=== PATIENT | male | born 1965 | race Caucasian/White ===

== ENCOUNTER 2019-09-29 20:00 | Outpatient (CLI) | payer OTHER, SELFPAY | END 2019-09-29 20:01 | disposition home or self-care (01) | LOC: SLEEP 09-30 08:29 | PROVIDERS: Family Provider Internal Medicine; PCP Nurse Practitioner; Visit Provider Nurse Practitioner | DX: G47.30 Sleep apnea, unspecified (principal) | CPT/HCPCS: 95811 ==

== ENCOUNTER → 2020-06-05 09:33 | Outpatient (BNVA) | payer OTHER, SELFPAY | PROVIDERS: Family Provider Internal Medicine; PCP Nurse Practitioner; Referring Provider Family Medicine; Visit Provider Specialist | DX: M17.11 Unilateral primary osteoarthritis, right knee (principal); R29.898 Other symptoms and signs involving the musculoskeletal system | CPT/HCPCS: 73560; 73565 ==

== ENCOUNTER 2021-09-18 14:05 | Outpatient (CLI) | payer OTHER, SELFPAY ==
--- NOTE | 2021-09-18 14:15 | US_ITS ---
WS: [id number] THYROID ULTRASOUND HISTORY: ENLARGED THYROID COMPARISON: None available. Right lobe: 1.4 cm x 1.8 cm x 5.3 cm (w x ap x l). Volume: 6.9 cm3. Normal size and echotexture. No significant are dominant nodules are present. Colloid cystic nodule u pper pole RIGHT thyroid with a maximum diameter of 5 mm. Left lobe: 1.5 cm x 1.9 cm x 3.8 cm (w x ap x l). Volume: 5.6 cm3. Normal size and echotexture. No significant or dominant nodules are present. Isthmus: 0.3 cm. US/US thyroid [id number] IMPRESSION: 1. Normal size thyroid. 2. No suspicious solid nodules.
== END 2021-09-18 14:06 | disposition home or self-care (01) ==
LOC: RAD 14:08
PROVIDERS: PCP Nurse Practitioner; Visit Provider Nurse Practitioner
DX: E04.9 Nontoxic goiter, unspecified (principal)
CPT/HCPCS: 76536

== ENCOUNTER 2023-05-16 07:26 | Outpatient (CLI) | payer OTHER, SELFPAY ==
--- NOTE | 2023-05-16 07:34 | CT_ITS ---
WS: [id number] CT HEAD NONCONTRAST HISTORY: MIGRAINES TECHNIQUE: Contiguous axial imaging performed through the brain in 2.5 mm imaging. Bone and soft tiss ue windows. Sagittal and coronal reformats reviewed. All CT scans at [facility] use at least one of these dose optimization techniques: automated exposure control; mA and/or kV adjustment per pa tient size (includes targeted exams where dose is matched to clinical indication); or iterative recon struction. DLP: 1044.48 mGy.cm COMPARISON: None available. No acute intracranial hemorrhage, midline shift or mass effect. Mild bilateral cerebral atrophy. There is also mild to moderate atrophy of the cerebellum which is sl ightly greater than expected for age. There are no prior infarcts. Mild small vessel ischemic disease . Ventricles: Normal size with no hydrocephalus. No inferior displacement the cerebellar tonsils. Paranasal sinuses: As visualized are clear. Mastoid air cells: Well pneumatized. Calvarium and scalp: Skull is intact with no soft tissue edema or swelling. IMPRESSION: 1. Mild bilateral cerebral atrophy with mild to moderate atrophy of the cerebellum. 2. No prior infarcts or hemorrhage.
== END 2023-05-16 07:27 | disposition home or self-care (01) ==
LOC: RAD 07:26
PROVIDERS: PCP Nurse Practitioner; Visit Provider Nurse Practitioner
DX: G43.909 Migraine, unspecified, not intractable, without status migrainosus (principal); G31.9 Degenerative disease of nervous system, unspecified
CPT/HCPCS: 70450

== ENCOUNTER → 2023-08-13 08:55 | Outpatient (BNVA) | payer OTHER, SELFPAY | PROVIDERS: PCP Nurse Practitioner; Visit Provider Psychiatry & Neurology Neurology | DX: R25.9 Unspecified abnormal involuntary movements (principal); R29.90 Unspecified symptoms and signs involving the nervous system; G47.00 Insomnia, unspecified; G47.33 Obstructive sleep apnea (adult) (pediatric) | CPT/HCPCS: 99203 ==

== ENCOUNTER 2023-08-27 07:43 | Outpatient (CLI) | payer OTHER, SELFPAY ==
--- NOTE | 2023-08-27 08:00 | MR_ITS ---
WS: [id number] MRI HEAD WITH CONTRAST TECHNIQUE: Sagittal T1, T2 axial, T2 axial FLAIR, axial susceptibility weighted imaging, axial diffus ion weighted images, and coronal T2 images were obtained. Pre and post-T1 axial and post T1 coronal i mages. ADC and FSPGR images. CLINICAL INFORMATION: R29.898 - Other symptoms and signs involving the musculos... COMPARISON: CT 05/16/2023 FINDINGS: No evidence of restricted diffusion to suggest acute ischemia. Ventricular system and basal cisterns are patent. Mild small vessel changes. Moderate parenchymal volume loss. Normal posterior fossa. Norm al vascular flow voids at the skull base. No extra-axial fluid collections. No evidence of mass or ma ss effect. Paranasal sinuses and mastoid air cells are well aerated. Normal optic chiasm and pituitar y infundibulum. Mild symmetric atrophy temporal lobes and hippocampal formations. No hemosiderin on t he susceptibly weighted images. No abnormal gadolinium enhancement. Normal dural venous sinuses. MR/MR head wo/w con [id number] IMPRESSION: 1. No evidence of restricted diffusion to suggest acute ischemia. 2. Mild small vessel changes. Moderate parenchymal volume loss. 3. and Mild symmetric atrophy temporal lobes hippocampal formations. 4. No hemosiderin on the susceptibly weighted images.
[2023-08-27] MEDS: gadobenate dimeglumine 20 mL vial IV (08:21)
== END 2023-08-27 07:44 | disposition home or self-care (01) ==
LOC: RAD 07:43
PROVIDERS: PCP Nurse Practitioner; Visit Provider Psychiatry & Neurology Neurology
DX: R29.898 Other symptoms and signs involving the musculoskeletal system (principal); G31.89 Other specified degenerative diseases of nervous system; M17.11 Unilateral primary osteoarthritis, right knee
CPT/HCPCS: 70553; A9577

== ENCOUNTER → 2023-10-22 11:00 | Outpatient (BNVA) | payer OTHER, SELFPAY | PROVIDERS: PCP Nurse Practitioner; Visit Provider Surgery | DX: K21.9 Gastro-esophageal reflux disease without esophagitis (principal) | CPT/HCPCS: 99203 ==

== ENCOUNTER → 2023-11-04 09:04 | Outpatient (BNVA) | payer OTHER, SELFPAY | PROVIDERS: PCP Nurse Practitioner; Visit Provider Psychiatry & Neurology Neurology | DX: R25.9 Unspecified abnormal involuntary movements (principal); G47.00 Insomnia, unspecified; R56.9 Unspecified convulsions | CPT/HCPCS: 95816; 95819 ==

== ENCOUNTER 2023-11-11 10:17 | Day surgery (SDC) | payer OTHER, SELFPAY ==
--- NOTE | 2023-11-11 10:27 | W.PM.OPSUD ---
Surgery/Procedure H&P Update DATE OF PROCEDURE: November 11, 2023 DATE H&P PERFORMED: 10/22/23 H&P UPDATE INFORMATION: I have reviewed H&P completed within last 30 days, I have examined patient prior to procedure, No changes to prior documentation and H&P is in [facility] on date indicated PLANNED PROCEDURE: Operation Date: 11/11/23 11:25 Proposed Procedures p EGD [id number], K21.9(Not Applicable) - Wilbert Gamez MD
[2023-11-11] MEDS: sodium chloride 0.9% 1,000 ML 30 ML IV (10:31)
[2023-11-11 10:39] VITALS: BMI 28.8
[2023-11-11 10:41] VITALS: BP 157/91; PULSE 94; RESP 18; TEMP 36.4; O2SAT 95
[2023-11-11 10:42] LABS: Glucose Point of Care 160 mg/dL (70-110)
--- NOTE | 2023-11-11 10:47 | ANES.PREANE2 ---
Pre-Anesthetic Assessment Height/Weight: Height 1.85 m Weight 98.883 kg Temp Pulse Resp BP Pulse Ox O2 Del Method 97.6 F 94 18 157/91 95 Room Air 11/11/23 10:41 11/11/23 10:41 11/11/23 10:41 11/11/23 10:41 11/11/23 10:41 11/11/23 10:41 Preop Diagnosis: GERD Operation Date: 11/11/23 11:25 Proposed Procedures p EGD [id number], K21.9(Not Applicable) - Wilbert Gamez MD Was Beta Miles taken within 24 hours: N/A Was Clonidine taken within 24 hours: N/A Last intake: Intake Last Liquid Date 11/10/23 Last Liquid Time 23:30 Last Solid Date 11/09/23 Social Alcohol and Tobacco Cigars Exam alert, oriented x 3, clear to auscultation bilaterally and regular rate & rhythm Airway Submandibular: within normal limits Cervical ROM: within normal limits Mallampati: Class II Dentition: full History/ROS No significant history except as noted and No significant complaints Pulmonary Sleep Apnea CPAP CV/HEM None reported None reported Hepatic None reported GI Gastroesophageal Reflux Disease Metabolic Diabetes Mellitus Neuropsych Neuropathy Tremors Anesthetic Plan ASA status: 3 Anesthesia: Anesthesia Evaluation and MAC Risk of > 500 ml blood loss (7ml/kg in children): No Medications/Allergies Home Medications Medication Instructions Recorded Confirmed Last Taken Type cyclobenzaprine 10 mg tablet 10 mg PO TID 06/05/20 11/06/23 11/06/23 History fluticasone propionate 50 1 spray intranasal DAILY 06/05/20 11/06/23 11/09/23 History mcg/actuation nasal spray,suspension loperamide 2 mg capsule (Imodium 2 mg PO Q6H PRN Diarrhea 06/05/20 11/11/23 Unknown History A-D) loratadine 5 mg disintegrating 5 mg PO BID 06/05/20 11/06/23 11/09/23 History tablet (Claritin RediTabs) magnesium 200 mg tablet 200 mg PO DAILY 06/05/20 11/06/23 11/09/23 History multivitamin 1 tab PO DAILY 06/05/20 11/06/23 11/09/23 History sumatriptan succinate 50 mg tablet 50 mg PO Q2H PRN Headache 06/05/20 11/11/23 Unknown History Lactobacillus acidophilus 2,000 mmu cells PO BID 08/13/23 11/06/23 11/06/23 History empagliflozin 25 mg tablet 25 mg PO DAILY 08/13/23 11/06/23 11/09/23 History (Jardiance) lactulose 10 gram/15 mL oral 10 g PO DAILY 08/13/23 11/06/23 11/06/23 History solution metformin 500 mg tablet 500 mg PO BID 08/13/23 11/06/23 11/09/23 History omeprazole 20 mg capsule,delayed 20 mg PO BID 08/13/23 11/06/23 11/09/23 History release pravastatin 80 mg tablet 80 mg PO DAILY 08/13/23 11/06/23 11/09/23 History sildenafil 100 mg tablet 100 mg PO DAILY PRN Sexual Activity 08/13/23 11/11/23 Unknown History pioglitazone 30 mg tablet (Actos) 30 mg PO DAILY 11/06/23 11/06/23 11/09/23 History Allergies Allergy/AdvReac Type Severity Reaction Status Date / Time No Known Allergies Allergy Verified 11/11/23 10:33 Current Medications Generic Name Dose Route Start Last Admin Trade Name Freq PRN Reason Stop Dose Admin Sodium Chloride 1,000 mls @ 30 mls/hr 11/11/23 10:30 11/11/23 10:31 Sodium Chloride 0.9% IV 11/12/23 10:29 30 mls/hr .Q24H SABINO Administration PFSH Anesthesia Social History Smoking and tobacco/nicotine status: current some day tobacco/nicotine user (cigars on occassion) Alcohol intake: current Alcohol intake frequency: holidays/special occasions only Substance/Drug Use: never Data Anesthesia Cardiac Studies: No Data to Display
[2023-11-11 11:39] VITALS: BP 120/81; PULSE 93; RESP 16; TEMP 36.6; O2SAT 94
[2023-11-11 11:49] VITALS: BP 129/83; PULSE 93; RESP 16; TEMP 36.3; O2SAT 96
--- NOTE | 2023-11-11 15:12 | ANE.PACU2 ---
Inpatient post-anesthesia follow up: Airway intact: Yes Vital signs: Temperature 97.4 F Pulse Rate 93 Respiratory Rate 16 Blood Pressure 129/83 Pulse Oximetry 96 Oxygen Delivery Me thod Room Air Oxygen Flow Rate Fraction of Inspir ed Oxygen Hydration adequate: Yes Nausea and vomiting: No Pain level: 2 Mental status: Baseline
== END 2023-11-11 12:14 | disposition home or self-care (01) ==
PROVIDERS: PCP Nurse Practitioner; Visit Provider Surgery
PROC: 0DJ08ZZ Inspection of Upper Intestinal Tract, Via Natural or Artificial Opening Endoscopic (ICD-10-PCS; CPT 43235; principal; 2023-11-11 11:25)
DX: K21.9 Gastro-esophageal reflux disease without esophagitis (principal); K29.50 Unspecified chronic gastritis without bleeding; G47.30 Sleep apnea, unspecified; E11.40 Type 2 diabetes mellitus with diabetic neuropathy, unspecified; Z79.84 Long term (current) use of oral hypoglycemic drugs; F17.200 Nicotine dependence, unspecified, uncomplicated
CPT/HCPCS: 36416; 43239; 82962; 88305; 88342; J2704; J7030

== ENCOUNTER → 2023-12-05 08:28 | Outpatient (BNVA) | payer OTHER, SELFPAY | PROVIDERS: PCP Nurse Practitioner; Visit Provider Surgery | DX: Z09 Encounter for follow-up examination after completed treatment for conditions other than malignant neoplasm (principal) | CPT/HCPCS: 99213 ==

== ENCOUNTER → 2023-12-30 15:23 | Outpatient (BNVA) | payer OTHER, SELFPAY | PROVIDERS: PCP Nurse Practitioner; Visit Provider Psychiatry & Neurology Neurology | DX: R25.9 Unspecified abnormal involuntary movements (principal); R56.9 Unspecified convulsions; R29.90 Unspecified symptoms and signs involving the nervous system; R20.2 Paresthesia of skin; R29.898 Other symptoms and signs involving the musculoskeletal system; M62.542 Muscle wasting and atrophy, not elsewhere classified, left hand; G56.03 Carpal tunnel syndrome, bilateral upper limbs | CPT/HCPCS: 99212; 99213 ==

== ENCOUNTER → 2024-03-23 12:42 | Outpatient (BNVA) | payer OTHER, SELFPAY | PROVIDERS: PCP Nurse Practitioner; Visit Provider Psychiatry & Neurology Neurology | DX: M62.542 Muscle wasting and atrophy, not elsewhere classified, left hand (principal); R29.898 Other symptoms and signs involving the musculoskeletal system; R20.2 Paresthesia of skin; M79.601 Pain in right arm; M79.602 Pain in left arm | CPT/HCPCS: 95912 ==

== ENCOUNTER → 2024-05-10 14:26 | Outpatient (BNVA) | payer OTHER, SELFPAY | PROVIDERS: PCP Nurse Practitioner; Visit Provider Psychiatry & Neurology Neurology | DX: R25.9 Unspecified abnormal involuntary movements (principal); G56.00 Carpal tunnel syndrome, unspecified upper limb; M54.2 Cervicalgia; R29.898 Other symptoms and signs involving the musculoskeletal system; R20.2 Paresthesia of skin; M79.601 Pain in right arm; M79.602 Pain in left arm; R56.9 Unspecified convulsions; R29.90 Unspecified symptoms and signs involving the nervous system; M62.542 Muscle wasting and atrophy, not elsewhere classified, left hand | CPT/HCPCS: 99212 ==

== ENCOUNTER 2024-05-19 14:26 | Outpatient (CLI) | payer OTHER, SELFPAY ==
--- NOTE | 2024-05-19 15:15 | MR_ITS ---
WS: [id number] MRI CERVICAL SPINE with and without HISTORY: M54.2 - Cervicalgia COMPARISON: 09/25/2018 Technique: Multiplanar, multisequence noncontrast imaging of the cervical spine. Mild straightening of the normal cervical lordosis. Posterior cervical alignment is normal. Disc spaces are mildly narrowed and desiccated. Hypertrophic endplate osteophytes at each level. Slightly greater disc space narrowing at C5-6. Signal within the cervical cord is normal. Visualized posterior fossa is unremarkable. Craniocervical junction, C1 and C2 relationship, odontoid process and soft tissues are normal. C2-C3: Mild osteophytic ridging and facet arthritis. Mild bilateral foraminal stenosis, LEFT greater than RIGHT. C3-C4: Disc osteophyte disease encroaching upon the ventral thecal sac and foramina. There is a central disc protrusion extending slightly greater to the LEFT. Mild central with moderate bilateral foraminal stenosis. C4-C5: Mild osteophytic ridging and disc bulging. Central disc protrusion with annular fissure noted on the prior study has decreased in size. There is less central stenosis and deformity of the cord. Mild osteophytic ridging greater on the RIGHT. Mild central with moderate foraminal stenosis. C5-C6: Marked osteophytic ridging and disc bulging. Large central disc protrusion with facet joint arthritis. Central disc protrusion has progressed. Progression of central and foraminal stenosis which is now severe. Cervical cord is being deformed by the disc disease. C6-C7: Diffuse osteophytic ridging and disc bulging. Slight decrease in size of the RIGHT paracentral disc protrusion. Mild central with moderate bilateral foraminal stenosis. C7-T1: Diffuse osteophytic ridging and disc bulging with a central disc protrusion contacting the ventral cervical cord. Similar findings as on the prior study. Mild central and moderate foraminal stenosis with facet arthritis. Paraspinal soft tissues are normal. No discitis or osteomyelitis. No enhancing cord lesions. MR/MR cervical spine wo/w [id number] IMPRESSION: 1. No acute discitis or osteomyelitis. 2. Multilevel central and foraminal stenoses due to osteophyte and disc and fa cet arthritis. 3. C5-6: Large central disc protrusion with disc bulging and osteophytosis res ulting in severe central and foraminal stenosis with disc osteophyte contacting the ventral cord. 4. C6-7: Mild central with moderate bilateral foraminal stenosis. Previously d escribed RIGHT paracentral disc protrusion has decreased in size. 5. C7-T1: Mild central and moderate foraminal stenosis. Central disc protrusio n contacts the ventral cervical cord. 6. C3-4 and C4-5: Mild central with moderate foraminal stenosis. Central disc protrusion previously described at C4-5 has decreased in size. 7. C2-3: Mild foraminal stenosis.
--- NOTE | 2024-05-19 16:00 | MR_ITS ---
WS: [id number] MRI LUMBAR SPINE WITH AND WITHOUT HISTORY: R25.9 - Unspecified abnormal involuntary movements COMPARISON: None available. TECHNIQUE: Sagittal and axial multisequence imaging is submitted. MultiHance 20 mL IV postcontrast. Normal lumbar alignment with no compression fractures or marrow edema. Mild disc space narrowing at L5-S1. No fractures or marrow edema. Conus terminates normally at L1-2 disc level. L1-L2: Mild facet arthritis. No stenosis. L2-L3: Mild facet arthritis. No stenosis. L3-L4: Mild annular disc bulging, osteophytic ridging and facet arthritis. Encroachment upon the ventral thecal sac. There is disc encroachment upon the subarticular recesses and the traversing L4 nerve roots. Mild central, bilateral subarticular recess and foraminal stenosis. L4-L5: Annular disc bulging with ligamentum flavum and facet arthritis. Mild central and bilateral subarticular recess and foraminal stenosis. L5-S1: Diffuse annular disc bulging with osteophytic ridging. Disc osteophyte disease extending into the foramina bilaterally. Broad-based LEFT foraminal disc protrusion. Moderate central with bilateral subarticular recess and foraminal stenosis. There is significant contact on the L5 and S1 nerve roots bilaterally. Urinary bladder is markedly distended on this examination. Correlate for possible bladder outlet obstruction. No discitis or osteomyelitis. MR/MR lumbar spine wo/w con [id number] IMPRESSION: 1. L5-S1: Moderate central, bilateral subarticular recess and foraminal stenos is due to disc and osteophyte disease. There is significant contact on the L5 a nd S1 nerve roots. 2. L3-4 and L4-5: Mild central with bilateral subarticular recess and foramina l stenosis. 3. No discitis or osteomyelitis.
[2024-05-19] MEDS: gadobenate dimeglumine 20 mL vial IV (16:25)
== END 2024-05-19 14:27 | disposition home or self-care (01) ==
LOC: RAD 14:27
PROVIDERS: PCP Nurse Practitioner; Visit Provider Psychiatry & Neurology Neurology
DX: M48.02 Spinal stenosis, cervical region (principal); R29.898 Other symptoms and signs involving the musculoskeletal system; R20.2 Paresthesia of skin; M79.601 Pain in right arm; M79.602 Pain in left arm; R25.9 Unspecified abnormal involuntary movements; M48.07 Spinal stenosis, lumbosacral region; M48.061 Spinal stenosis, lumbar region without neurogenic claudication; R93.7 Abnormal findings on diagnostic imaging of other parts of musculoskeletal system; M47.896 Other spondylosis, lumbar region; M51.369 Other intervertebral disc degeneration, lumbar region without mention of lumbar back pain or lower extremity pain; M51.379 Other intervertebral disc degeneration, lumbosacral region without mention of lumbar back pain or lower extremity pain; M51.27 Other intervertebral disc displacement, lumbosacral region; R93.49 Abnormal radiologic findings on diagnostic imaging of other urinary organs; M47.892 Other spondylosis, cervical region; M50.222 Other cervical disc displacement at C5-C6 level; M50.322 Other cervical disc degeneration at C5-C6 level; M50.223 Other cervical disc displacement at C6-C7 level; M48.03 Spinal stenosis, cervicothoracic region; M50.23 Other cervical disc displacement, cervicothoracic region; M50.221 Other cervical disc displacement at C4-C5 level; M25.78 Osteophyte, vertebrae; M50.21 Other cervical disc displacement, high cervical region; M50.321 Other cervical disc degeneration at C4-C5 level; M50.323 Other cervical disc degeneration at C6-C7 level; M50.33 Other cervical disc degeneration, cervicothoracic region; M47.893 Other spondylosis, cervicothoracic region
CPT/HCPCS: 72156; 72158

== ENCOUNTER → 2024-06-15 14:02 | Outpatient (BNVA) | payer OTHER, SELFPAY | PROVIDERS: PCP Nurse Practitioner; Visit Provider Orthopaedic Surgery | DX: M54.50 Low back pain, unspecified (principal); M54.2 Cervicalgia | CPT/HCPCS: 72050; 72110; 99204 ==

== ENCOUNTER 2024-06-22 10:05 | Outpatient (CLI) | payer OTHER, SELFPAY ==
[2024-06-22 10:49] LABS: Basophils % 0.7 %; Eosinophils # 0.1 10^3/uL (0.0-0.8); Eosinophils % 1.3 %; Lymphocytes % 35.4 %; Mean Corpuscular HGB Conc 33.3 g/dL (30-55); Mean Corpuscular Hemoglobin 30.3 pg (27-33); Mean Corpuscular Volume 91.1 fl (82-101); Mean Platelet Volume 10.7 fL (7.4-10.4); Monocytes # 0.4 10^3/uL (0.2-0.9); Monocytes % 7.4 %; Neutrophils # 3.04 10^3/uL (1.8-7.7); Nucleated Red Blood Cells % 0 %; Platelet Count 198 10^3/cmm (157-399); Red Blood Count 4.72 10^6/uL (3.85-5.65); Red Cell Distribution Width 12.6 % (12.1-15.1); White Blood Count 5.53 10^3/uL (3.29-11.43)
[2024-06-22 10:52] LABS: Bilirubin Urine Negative (Negative); Blood Urine Negative (Negative); Glucose Urine UA 2+ (Normal); Ketones Urine Negative (Negative); Leukocyte Esterase Urine Negative (Negative); Nitrate Urine Negative (Negative); Protein Urine Negative (Negative); Specific Gravity, Urine 1.005 (1.005-1.030); Urine Appearance Clear (CLEAR); Urine Color Yellow (Yellow); Urobilinogen Urine 0.2 mg/dL (Negative)
[2024-06-22 10:54] LABS: Add Urine Microscopic? YES; Bacteria Urine None Seen /hpf; Hyaline Casts Urine 0-4 /lpf; RBC Urine 0-2 /hpf (0-2); Squamous Epithelial Cell Urine 0-5 /hpf (0-5); WBC Urine 0-5 /hpf (0-5)
[2024-06-22 11:19] LABS: Alanine Aminotransferase 27 U/L (0-41); Albumin Level 4.7 g/dL (3.5-5.2); Alkaline Phosphatase 71 U/L (40-130); Anion Gap 15.3 (5-19); Aspartate Amino Transferase 23 U/L (0-40); Blood Urea Nitrogen 10 mg/dL (6-20); Calcium 9.5 mg/dL (8.5-10.5); Carbon Dioxide 26 mmol/L (22-29); Chloride 100 mmol/L (98-107); Globulin 2.6 g/dL (1.3-4.6); Glomerular Filtration Rate 76.7 mL/min (90-130); Glucose 131 mg/dL (65-115); Osmolality Calculated 285 mOsm/kg (285-295); Potassium 4.3 mmol/L (3.5-5.1); Sodium 137 mmol/L (136-145); Total Bilirubin 0.4 mg/dL (0.15-1.2); Total Protein 7.3 g/dL (6.6-8.7)
[2024-06-22 11:21] LABS: Estmated Average Glucose 154
== END 2024-06-22 10:06 | disposition home or self-care (01) ==
LOC: LAB 10:06
PROVIDERS: PCP Nurse Practitioner; Visit Provider Orthopaedic Surgery
DX: Z01.818 Encounter for other preprocedural examination (principal)
CPT/HCPCS: 36415; 80053; 81001; 83036; 85025

== ENCOUNTER 2024-07-07 05:36 | Day surgery (SDC) | payer OTHER, SELFPAY ==
[2024-07-07] VITALS (10 sets, daily range): BP systolic 115–159; BP diastolic 72–96; PULSE 75–80; RESP 10–18; TEMP 36.1–36.4; O2SAT 94–99
[2024-07-07] MEDS: sodium chloride 0.9% 1,000 ML 30 ML IV (06:12)
[2024-07-07 06:18] LABS: Glucose Point of Care 150 mg/dL (70-110)
--- NOTE | 2024-07-07 06:22 | W.PM.OPSUD ---
Surgery/Procedure H&P Update DATE OF PROCEDURE: July 07, 2024 DATE H&P PERFORMED: 06/15/24 H&P UPDATE INFORMATION: I have reviewed H&P completed within last 30 days, I have examined patient prior to procedure and No changes to prior documentation PREOP DIAGNOSIS: Cervical stenosis with radiculopathy and myelopathy PLANNED PROCEDURE: Operation Date: 07/07/24 07:00 Proposed Procedures p Anterior Cervical Discectomy & Fusion ACDF w/ Anterior Interbody Fusion w/ Cage w/ Instrumentation w/ Allograft w/ Navigation(Not Applicable) - Jesse Jacobs DO
--- NOTE | 2024-07-07 06:26 | ANES.PREANE2 ---
Pre-Anesthetic Assessment Height/Weight: Height 1.85 m Weight 104.326 kg Temp Pulse Resp BP Pulse Ox O2 Del Method 97.6 F 76 18 140/74 94 Room Air 07/07/24 06:03 07/07/24 06:03 07/07/24 06:03 07/07/24 06:03 07/07/24 06:03 07/07/24 06:03 Preop Diagnosis: Cervical stenosis with radiculopathy and myelopathy Operation Date: 07/07/24 07:00 Proposed Procedures p Anterior Cervical Discectomy & Fusion ACDF w/ Anterior Interbody Fusion w/ Cage w/ Instrumentation w/ Allograft w/ Navigation(Not Applicable) - Jesse Jacobs, DO Familial anesthetic complications: None Was Beta Miles taken within 24 hours: N/A Was Clonidine taken within 24 hours: N/A Last intake: Intake Last Liquid Date 07/06/24 Last Liquid Time 21:00 Last Solid Date 07/06/24 Last Solid Time 18:30 Social No alcohol and No tobacco Exam alert, oriented x 3, clear to auscultation bilaterally and regular rate & rhythm Airway Mallampati: Class IV Dentition: chipped and other (front implant) Pulmonary Sleep Apnea Metabolic Diabetes Mellitus Anesthetic Plan ASA status: 3 Anesthesia: General Risk of > 500 ml blood loss (7ml/kg in children): No Medications/Allergies Home Medications ?Medication ?Instructions ?Recorded ?Confirmed ?Last Taken ?Type cyclobenzaprine 10 mg tablet 10 mg PO TID 06/05/20 07/07/24 06/23/24 History fluticasone propionate 50 1 spray intranasal DAILY 06/05/20 07/07/24 01/28/24 History mcg/actuation nasal spray,suspension loperamide 2 mg capsule (Imodium 2 mg PO Q6H PRN Diarrhea 06/05/20 07/07/24 05/05/24 History A-D) loratadine 5 mg disintegrating 5 mg PO BID 06/05/20 07/07/24 07/05/24 History tablet (Claritin RediTabs) magnesium 200 mg tablet 200 mg PO DAILY 06/05/20 07/07/24 06/26/24 History multivitamin 1 tab PO DAILY 06/05/20 07/07/24 06/29/24 History sumatriptan succinate 50 mg tablet 50 mg PO Q2H PRN Headache 06/05/20 07/07/24 Unknown History Lactobacillus acidophilus 2,000 mmu cells PO BID 08/13/23 07/07/24 07/02/24 History empagliflozin 25 mg tablet 25 mg PO DAILY 08/13/23 07/07/24 06/16/24 History (Jardiance) lactulose 10 gram/15 mL oral 10 g PO DAILY 08/13/23 07/07/24 06/07/24 History solution metformin 500 mg tablet 500 mg PO BID 08/13/23 07/07/24 07/06/24 07:00 History pravastatin 80 mg tablet 80 mg PO DAILY 08/13/23 07/07/24 07/05/24 History sildenafil 100 mg tablet 100 mg PO DAILY PRN Sexual Activity 08/13/23 07/07/24 Unknown History pioglitazone 30 mg tablet (Actos) 30 mg PO DAILY 11/06/23 07/07/24 07/05/24 History pantoprazole 40 mg tablet,delayed 40 mg PO ONCE 30 days #30 tabs 12/05/23 07/07/24 06/05/24 Rx release trazodone 50 mg tablet 50 mg PO DAILY 05/10/24 07/07/24 07/06/24 History Allergies Allergy/AdvReac Type Severity Reaction Status Date / Time Alpha-Gal Allergy ALGY-Anaphy Verified 07/07/24 06:18 ([id number]-[id number]-8,3-Gala laxis Current Medications Generic Name Dose Route Start Last Admin Trade Name Freq PRN Reason Stop Dose Admin Sodium Chloride 1,000 mls @ 30 mls/hr 07/07/24 06:00 07/07/24 06:12 Sodium Chloride 0.9% IV 07/08/24 05:59 30 mls/hr .Q24H SABINO Administration PFSH Anesthesia Social History Smoking and tobacco/nicotine status: former use of tobacco/nicotine Alcohol intake: current Alcohol intake frequency: holidays/special occasions only Substance/Drug Use: never Data Anesthesia Cardiac Studies: No Data to Display
[2024-07-07] MEDS: ceFAZolin 2,000 mg SDV 2000 MG IVP (06:56)
[2024-07-07] MEDS: lidocaine-epi 1% 20 mL INJ 10 ML INJECTION (07:57)
--- NOTE | 2024-07-07 09:19 | P.OP_ITS ---
Operative Report Date of procedure: July 07, 2024 Pre-op diagnosis: Cervical stenosis with radiculopathy and myelopathy Post-op diagnosis: same Procedure done: 1. Anterior diskectomy C4/5 2. Anterior discectomy C 5/6 3. Insertion of cage C 4/5 4. Insertion of Cage C 5/6 5. Instrumentation with anterior plate from C 4-C6 6. Use of allograft Surgeon: Jesse Jacobs DO Estimated blood loss (mL): 15 Procedure: 1. Anterior diskectomy C4/5 2. Anterior discectomy C 5/6 3. Insertion of cage C 4/5 4. Insertion of Cage C 5/6 5. Instrumentation with anterior plate from C 4-C6 6. Use of allograft The patient was taken to the operating room, where he underwent general endotracheal anesthesia without complications. He was then positioned supine on the operating table, and all areas of impingement were well padded. The arms were carefully padded and tucked at his sides. A roll was placed between the shoulder blades.. An x-ray was done to determine the appropriate level for the skin incision. The entire neck was then sterilely prepped and draped in the usual fashion. Neuromonitoring was attached prior to prepping. A transverse skin incision was made and carried down to the platysma muscle. This was then split in line with its fibers. Blunt dissection was carried down medial to the carotid sheath and lateral to the trachea and esophagus until the anterior cervical spine was visualized. A needle was placed into a disc and an x-ray was done to determine its location. The longus colli muscles were then elevated bilaterally with the electrocautery unit. Self-retaining retractors were placed deep to the longus colli muscle. Attention was brought to the C4/5 level that was confirmed on x-ray. A caspar pin was placed into the C4 vertebrae and the C5 vertebrae. The disk space was then distracted. The microscope was then brought in. A radical anterior discectomies were performed at C4/5. This included complete removal of the anterior annulus, nucleus, and posterior annulus. The posterior longitudinal ligament was removed as were the posterior osteophytes. Foraminotomies were then accomplished bilaterally. This was done using a high speed martin, kerrison rongeurs and curretes Once all of this was accomplished, the curved currette was used to check for any residual compression. The central canal was wide open as were the foramen. A high-speed bur was used to remove the cartilaginous endplates above and below the interspace. Bleeding cancellous bone was exposed. The disc space were measured and appropriate size cage were placed sterilely onto the field. Allograft graft was packed into the cages. The cage was then placed and there was good juxtaposition against the bleeding decorticated surfaces and good distraction of each interspace. Attention was brought to the next interspace. The [place] pins were removed. Bone wax was used to prevent any bleeding from occurring at the pin sites. Attention was brought to the C5/6 level that was confirmed on x-ray. A caspar pin was placed into the C5 vertebrae and the C6 vertebrae. The disk space was then distracted. The microscope was then brought in. A radical anterior discectomies were performed at C5/6. This included complete removal of the anterior annulus, nucleus, and posterior annulus. The posterior longitudinal ligament was removed as were the posterior osteophytes. Foraminotomies were then accomplished bilaterally. This was done using a high speed martin, kerrison rongeurs and curretes Once all of this was accomplished, the curved currette was used to check for any residual compression. The central canal was wide open as were the foramen. A high-speed bur was used to remove the cartilaginous endplates above and below the interspace. Bleeding cancellous bone was exposed. The disc space were measured and appropriate size cage were placed sterilely onto the field. Allograft graft was packed into the cages. The cage was then placed and there was good juxtaposition against the bleeding decorticated surfaces and good distraction of each interspace. The [place] pins were removed. Bone wax was used to prevent any bleeding from occurring at the pin sites. The appropriate size anterior cervical locking plate was chosen and bent into gentle lordosis. Two screws were then placed into each of the vertebral bodies at C4, C5 and C6. There was excellent purchase. A final x-ray was done confirming good position of the hardware and Cages. The locking screws were then applied, also with excellent purchase. Following a final copious irrigation, there was good hemostasis and no dural leaks. The carotid pulse was strong. The wounds were then closed in layers using 2-0 Vicryl suture for the platysma muscle, 2-0 Vicryl suture for the subcutaneous tissue, and 4-0 monocryl suture in a subcuticular skin closure. Glue was placed followed by application of a sterile dressing. The drain was hooked to bulb suction. A soft collar was applied. The patient was then carefully returned to the supine position on his hospital bed where he was reversed and extubated and taken to the recovery room having tolerated the procedure well.
--- NOTE | 2024-07-07 09:21 | XR_ITS ---
WS: [id number] XR cervical spine 3V* [id number] REASON FOR EXAM: or pic, acdf FINDINGS: Anterior plate and screw fixation with interbody fusion devices C4-C6. The surgical appliances are intact and in proper position and alignment. XR/XR cervical spine 3V* [id number] IMPRESSION: Anterior cervical fusion without abnormality.
[2024-07-07] MEDS: HYDROcodone-APAP 7.5-325 mg/15 mL UDC PO (10:27)
--- NOTE | 2024-07-07 10:45 | ANE.PACU2 ---
Inpatient post-anesthesia follow up: Airway intact: Yes Vital signs: Temperature 97.0 F Pulse Rate 77 Respiratory Rate 16 Blood Pressure 159/90 Pulse Oximetry 97 Oxygen Delivery Me thod Room Air Oxygen Flow Rate 10 Fraction of Inspir ed Oxygen Hydration adequate: Yes Nausea and vomiting: No Pain level: 1 Mental status: Baseline
== END 2024-07-07 10:45 | disposition home or self-care (01) ==
PROVIDERS: PCP Nurse Practitioner; Visit Provider Orthopaedic Surgery
PROC: 0RB30ZZ Excision of Cervical Vertebral Disc, Open Approach (ICD-10-PCS; CPT 22551; principal; 2024-07-07 07:00)
DX: M48.02 Spinal stenosis, cervical region (principal); M54.12 Radiculopathy, cervical region; G99.2 Myelopathy in diseases classified elsewhere; E11.9 Type 2 diabetes mellitus without complications; Z79.84 Long term (current) use of oral hypoglycemic drugs; Z79.899 Other long term (current) drug therapy; Z87.891 Personal history of nicotine dependence
CPT/HCPCS: 22551; 22552; 22853 ×2; 20930; 36416; 72040; 76000; 82962; C1713; C1763; C9359; J0131; J0330; J0690; J1100; J1171; J1885; J2250; J2405; J2704; J3010; J3490; J7030; J9999

== ENCOUNTER → 2024-07-22 14:40 | Outpatient (BNVA) | payer OTHER, SELFPAY | PROVIDERS: PCP Nurse Practitioner; Visit Provider Orthopaedic Surgery | DX: M48.02 Spinal stenosis, cervical region (principal) | CPT/HCPCS: 99024 ==

== ENCOUNTER → 2024-08-19 14:04 | Outpatient (BNVA) | payer OTHER, SELFPAY | PROVIDERS: PCP Nurse Practitioner; Visit Provider Orthopaedic Surgery | DX: M48.02 Spinal stenosis, cervical region (principal); Z98.1 Arthrodesis status | CPT/HCPCS: 72040; 99024 ==

== ENCOUNTER → 2024-08-31 14:35 | Outpatient (BNVA) | payer OTHER, SELFPAY | PROVIDERS: PCP Nurse Practitioner; Visit Provider Psychiatry & Neurology Neurology | DX: R25.9 Unspecified abnormal involuntary movements (principal); G56.00 Carpal tunnel syndrome, unspecified upper limb; M54.2 Cervicalgia; R29.898 Other symptoms and signs involving the musculoskeletal system; R20.2 Paresthesia of skin; M79.601 Pain in right arm; M79.602 Pain in left arm; R56.9 Unspecified convulsions; R29.90 Unspecified symptoms and signs involving the nervous system; M62.542 Muscle wasting and atrophy, not elsewhere classified, left hand | CPT/HCPCS: 99212 ==

== ENCOUNTER → 2024-09-30 08:12 | Outpatient (BNVA) | payer OTHER, SELFPAY | PROVIDERS: PCP Nurse Practitioner; Visit Provider Orthopaedic Surgery | DX: Z98.890 Other specified postprocedural states (principal); Z98.1 Arthrodesis status | CPT/HCPCS: 72040; 99024 ==

== ENCOUNTER → 2025-01-25 08:33 | Outpatient (BNVA) | payer OTHER, SELFPAY | PROVIDERS: PCP Nurse Practitioner; Visit Provider Orthopaedic Surgery | DX: Z47.89 Encounter for other orthopedic aftercare (principal); Z98.1 Arthrodesis status | CPT/HCPCS: 72040; 99213 ==